=== PATIENT | female | born 1940 | race Two or more races ===

== ENCOUNTER 2022-03-20 14:33 | Emergency (ER) | payer OTHER ==
[~2022-03-20] VITALS: Ht 170.2 cm; Wt 63.5 kg
[~2022-03-20 14:33] MED LIST: ACET-2605 PO; AMOX-427 PO; CALC500T53 PO; GABA-534 PO; HYDR-3974 PO; LACT1CAP72 PO; LISI10TA29 PO; LOVA20TA2 PO; METF-442 PO; OMEP20TA5 PO; ONDA8TAB9 PO
--- NOTE | 2022-03-20 14:48 | NUR ---
dr montelongo at bedside
--- NOTE | 2022-03-20 14:59 | NUR ---
BIB GRAND DAUGHTER "SHANTELLE" ([phone]) FROM HOME.
[2022-03-20] MEDS: TDAP [DIPH/PERTUSSIS/TET] 0.5 ML VIAL IM ONE (15:00)
[2022-03-20] MEDS: LIDOCAINE HCL/PF 1% 30 ML VIAL TP ONE (15:00)
[2022-03-20] MEDS: BACI/NEOM/POLY B OINT PKT 1 UDPKT PACKET TP ONE (15:00)
[2022-03-20] MEDS ORDERED: BACI/NEOM/POLY B OINT PKT 1 UDPKT PACKET ONE (15:45)
[2022-03-20] MEDS ORDERED: TDAP [DIPH/PERTUSSIS/TET] 0.5 ML VIAL IM ONE (15:45)
[2022-03-20] MEDS ORDERED: CEPH500T PO (17:24)
--- NOTE | 2022-03-20 17:30 | NUR ---
DAUGHTER WILL COLLECT PT
[2022-03-20 17:39] VITALS: BP 132/68
--- NOTE | 2022-03-20 18:00 | NUR ---
Patient discharged to home with grand cook in stable condition. Written and verbal after care instructions given. Patient and grand daughter verbalizes understanding of instruction. Jaja Desai [phone]
== END 2022-03-20 18:05 | disposition home or self-care (01) ==
LOC: ER 14:40
DX: S01.511A Laceration without foreign body of lip, initial encounter (principal); I10 Essential (primary) hypertension; E11.8 Type 2 diabetes mellitus with unspecified complications; K21.9 Gastro-esophageal reflux disease without esophagitis; Z90.89 Acquired absence of other organs; Z79.899 Other long term (current) drug therapy; W18.30XA Fall on same level, unspecified, initial encounter; Y93.89 Activity, other specified; Y92.89 Other specified places as the place of occurrence of the external cause; Y99.8 Other external cause status
CPT/HCPCS: 12011; 90471; 90715; 99283; A6403 ×2